=== PATIENT | female | born 1980 | race Caucasian/White ===

== ENCOUNTER 2016-10-17 06:11 | Observation (INO) | payer BC ==
--- NOTE | 2016-10-17 06:34 | C.PDOC ---
History Of Present Illness 36 year old female who presents to the ER after waking up this morning with chest tightness. 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 Deutsch. Patient is not currently on any medication; denies Hx or URI, cough, nausea, vomiting, or fever. Chief Complaint (Nursing): Chest Pain History Per: Patient History/Exam Limitations: no limitations Onset/Duration Of Symptoms: Hrs Current Symptoms Are (Timing): Still Present Quality: Tightness Associated Symptoms: denies: Nausea, Dyspnea, Diaphoresis, Syncope Modifying Factors: None Exacerbating Factors: None Alleviating Factors: None Recent travel outside of the [place]: No Past Medical History Reviewed: Historical Data, Nursing Documentation, Vital Signs Vital Signs: Last Vital Signs Temp 97.6 F 10/17/16 06:19 Pulse 62 10/17/16 06:19 Resp 17 10/17/16 06:19 BP 133/79 10/17/16 06:19 Pulse Ox 99 10/17/16 06:19 - Medical History PMH: No Chronic Diseases Surgical History: No Surg Hx Family History: States: Unknown Family Hx Review Of Systems Constitutional: Negative for: Fever, Chills Cardiovascular: Positive for: Chest Pain. Negative for: Palpitations Respiratory: Negative for: Cough, Shortness of Breath, Wheezing Gastrointestinal: Negative for: Nausea, Vomiting Neurological: Negative for: Weakness, Numbness Physical Exam - Physical Exam Appears: Non-toxic Skin: Normal Color, Warm, Dry Head: Atraumatic, Normacephalic Oral Mucosa: Moist Chest: No Tenderness Cardiovascular: Rhythm Regular, No Murmur Respiratory: Normal Breath Sounds, No Rales, No Rhonchi, No Wheezing Gastrointestinal/Abdominal: Soft, No Tenderness Neurological/Psych: Oriented x3, Normal Speech, Normal Cognition ED Course And Treatment ECG Rhythm: Sinus Bradycardia, ST/T Changes Interpretation Of ECG: sinus rad with sinus arrhythmia, T abnormalities, mostly in the lateral leads Rate From EC Progress Note: Labs, CXR ordered. Case was signed out to Trisha Reese at 7 am. Disposition - Disposition Referrals: Sachin Massey [Primary Care Provider] - Disposition Time: 07:00 Condition: FAIR Forms: [facility] [facility] (Spanish) - Clinical Impression Clinical Impression: Chest pain - Scribe Statement The provider has reviewed the documentation as recorded by the Scribe Stephen Marie All medical record entries made by the Scribe were at my direction and personally dictated by me. I have reviewed the chart and agree that the record accurately reflects my personal performance of the history, physical exam, medical decision making, and the department course for this patient. I have also personally directed, reviewed, and agree with the discharge instructions and disposition. Physician Patient Turnover Patient Signed Over To: Trisha Reese Handoff Comments: Pending labs and x-ray.
[2016-10-17 07:02] LABS: BASO # 0.1 K/uL (0.0-0.2); BASO % 0.8 % (0.0-2.0); EOS # 0.2 K/uL (0.0-0.7); EOS % 2.2 % (0.0-4.0); HEMATOCRIT 41.9 % (34.0-47.0); LYMPH % 45.8 % (20.0-40.0); MEAN CELL VOLUME 67.2 fL (81.0-99.0); MEAN CORPUSCULAR HEMOGLOBIN 20.7 pg (27.0-31.0); MEAN CORPUSCULAR HGB CONC 30.7 g/dL (33.0-37.0); MONO # 0.6 K/uL (0.0-0.8); MONO % 6.9 % (0.0-10.0); NRBC % 0.1 % (0.0-2.0); RED CELL DISTRIBUTION WIDTH 14.9 % (11.5-14.5); WHITE BLOOD COUNT 8.7 K/uL (4.8-10.8)
[2016-10-17 07:11] LABS: INR 1.1; PARTIAL THROMBOPLASTIN TIME 33 SECONDS (21-34)
[2016-10-17 07:17] LABS: RBC URINE 5 /hpf (0-3); URINE BACTERIA RARE (<OCC); URINE BILIRUBIN NEGATIVE (NEGATIVE); URINE BLOOD 1+ (NEGATIVE); URINE COLOR Yellow (YELLOW); URINE GLUCOSE (UA) NORMAL (Normal); URINE KETONE NEGATIVE (NEGATIVE); URINE LEUKOCYTE ESTERASE TRACE Leu/uL (Negative); URINE PROTEIN NEGATIVE (NEGATIVE); URINE UROBILINOGEN NORMAL mg/dL (0.2-1.0); WBC URINE 2 /hpf (0-5)
[2016-10-17 09:12] LABS: CHLORIDE 105 mmol/L (98-107); POTASSIUM 3.9 mmol/L (3.6-5.2); SODIUM 140 mmol/L (132-148)
[2016-10-17 09:14] LABS: AST/SGOT 13 U/L (14-36); BILIRUBIN,TOTAL 0.7 mg/dL (0.2-1.3); CARBON DIOXIDE 24 mmol/L (22-30); GFR AFRICAN-AMERICAN > 60
[2016-10-17 09:15] LABS: ALB/GLOB RATIO 1.1 (1.0-2.1); ALKALINE PHOSPHATASE 60 U/L (38-126); ALT/SGPT 32 U/L (9-52); BLOOD UREA NITROGEN 15 mg/dL (7-17); CALCIUM 8.9 mg/dl (8.6-10.4); GLUCOSE,RANDOM 85 mg/dL (65-105)
--- NOTE | 2016-10-17 10:33 | CP.PCM.HP ---
History of Present Illness - History of Present Illness History of Present Illness: cc: "chest pain" HPI: Patient is a 36 year old female with a PMHx of Tetralogy of Fallot (s/p hx at age of 1) that presented to the ED complaining of chest pain that started this morning, around 5-6am. She said she was getting ready to go to work, washing up in the bathroom, when she started feeling a pain in her left chest, describing it as a 7-8/10 pressure/ sharp pain. She said that it was the first time she ever had pain like this. She denied any nausea, vomiting, palpitations , dyspnea, numbness or tingling, radiation of pain. PMD: Dr. Massey PMHx: Hx of Tetralogy of Fallot PSHx: Heart surgery around age of 1, appendectomy in 1997 Allergies: NKDA Fam hx: Father- [place] in 70s, htn, dm, prostate cancer Social hx: denies smoking or drug hx. Social alcohol use. 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 She has no advance directives, she is full code. patient designates her sister Mckenzie as her health proxy- Phone number is [phone]. Present on Admission - Present on Admission Any Indicators Present on Admission: No Review of Systems - Constitutional Constitutional: absent: Anorexia, Daytime Sleepiness - EENT Eyes: absent: Blurred Vision Nose/Mouth/Throat: absent: Nasal Congestion, Facial Pain, Neck Mass - Cardiovascular Cardiovascular: Chest Pain. absent: Chest Pain at Rest, Chest Pain with Activity, Irregular Heart Rhythm, Leg Edema, Palpitations, Pedal Edema - Respiratory Respiratory: absent: Cough, Hemoptysis, Wheezing - Gastrointestinal Gastrointestinal: absent: Abdominal Pain, Change in Bowel Habits, Constipation, Dyspepsia, Nausea, Vomiting - Genitourinary Genitourinary: absent: Change in Urinary Stream, Difficulty Urinating - Menstruation Menstruation: absent: Amenorrhea/ Control, Post Menopausal, Premenarche - Musculoskeletal Musculoskeletal: absent: Back Pain, Myalgias, Numbness - Integumentary Integumentary: absent: Change in Hair, Swelling, Wounds - Neurological Neurological: absent: Abnormal Movements, Tingling, Tremor, Weakness - Psychiatric Psychiatric: absent: Anxiety, Panic Attacks, Suicidal Ideation - Endocrine Endocrine: absent: Fatigue, Palpitations Past Patient History - Infectious Disease Hx of Infectious Diseases: None - Past Social History Smoking Status: Never Smoked Chewing Tobacco Use: No Cigar Use: No Alcohol: Occasional Drugs: Denies - PSYCHIATRIC Hx Substance Use: No - SURGICAL HISTORY Hx Surgeries: Yes Hx Appendectomy: Yes (1997) Other/Comment: "open heart when i was 2yrs old" - ANESTHESIA Hx Anesthesia: Yes Hx Anesthesia Reactions: No Meds Allergies/Adverse Reactions: Allergies Allergy/AdvReac Type Severity Reaction Status Date / Time No Known Allergies Allergy Unverified 10/17/16 06:19 Physical Exam - Constitutional Appears: Non-toxic, No Acute Distress - Head Exam Head Exam: ATRAUMATIC, NORMAL INSPECTION, NORMOCEPHALIC - Eye Exam Pupil Exam: NORMAL ACCOMODATION, PERRL - ENT Exam ENT Exam: Mucous Membranes Moist - Neck Exam Neck exam: Positive for: Normal Inspection - Respiratory Exam Respiratory Exam: Clear to Auscultation Bilateral, NORMAL BREATHING PATTERN. absent: Prolonged Expiratory Phase, Rales, Rhonchi, Wheezes - Cardiovascular Exam Cardiovascular Exam: REGULAR RHYTHM, +S1, +S2 Additional comments: left chest, lateral to sternum has palpable tenderness. Pain worsens when patient is sitting up, relieved when patient lays down. - GI/Abdominal Exam GI & Abdominal Exam: Normal Bowel Sounds, Soft. absent: Distended, Firm, Guarding, Tenderness - Extremities Exam Extremities exam: Positive for: normal capillary refill, pedal pulses present - Neurological Exam Neurological exam: Alert, CN II-XII Intact, Oriented x3 - Psychiatric Exam Psychiatric exam: Normal Affect, Normal Mood - Skin Skin Exam: Dry, Intact, Normal Color, Warm Results - Vital Signs Recent Vital Signs: Last Vital Signs Temp 97.9 F 10/17/16 09:46 Pulse 58 L 10/17/16 09:46 Resp 18 10/17/16 09:46 BP 128/74 10/17/16 09:46 Pulse Ox 100 10/17/16 09:46 - Labs Result Diagrams: 10/17/16 06:46 10/17/16 09:01 Labs: Laboratory Results - last 24 hr 10/17/16 10/17/16 10/17/16 06:40 06:41 06:46 WBC 8.7 RBC 6.23 H Hgb 12.9 Hct 41.9 MCV 67.2 L MCH 20.7 L MCHC 30.7 L RDW 14.9 H Plt Count 214 MPV 9.0 Neut % (Auto) 44.3 L Lymph % (Auto) 45.8 H Lawrence % (Auto) 6.9 Eos % (Auto) 2.2 Baso % (Auto) 0.8 Neut # 3.9 Lymph # 4.0 Lawrence # 0.6 Eos # 0.2 Baso # 0.1 PT 12.8 H INR 1.1 APTT 33 D-Dimer, Quantitative < 200 Sodium Potassium Chloride Carbon Dioxide Anion Gap BUN Creatinine Est GFR ( Amer) Est GFR (Non-Af Amer) Random Glucose Calcium Total Bilirubin AST ALT Alkaline Phosphatase Total Creatine Kinase CK-MB (Mass) Troponin I, Quant NT-Pro-B Natriuret Pep Total Protein Albumin Globulin Albumin/Globulin Ratio Urine Color Yellow Urine Clarity Clear Urine pH 6.0 Ur Specific Mcdermitt 1.020 Urine Protein Negative Urine Glucose (UA) Normal Urine Ketones Negative Urine Blood 1+ H Urine Nitrate Negative Urine Bilirubin Negative Urine Urobilinogen Normal Ur Leukocyte Esterase Trace Urine WBC (Auto) 2 Urine RBC (Auto) 5 H Ur Squamous Epith Cells 2 Urine Bacteria Rare Urine HCG, Qual Negative 10/17/16 09:01 WBC RBC Hgb Hct MCV MCH MCHC RDW Plt Count MPV Neut % (Auto) Lymph % (Auto) Lawrence % (Auto) Eos % (Auto) Baso % (Auto) Neut # Lymph # Lawrence # Eos # Baso # PT INR APTT D-Dimer, Quantitative Sodium 140 Potassium 3.9 Chloride 105 Carbon Dioxide 24 Anion Gap 15 BUN 15 Creatinine 0.6 L Est GFR ( Amer) > 60 Est GFR (Non-Af Amer) > 60 Random Glucose 85 Calcium 8.9 Total Bilirubin 0.7 AST 13 L ALT 32 Alkaline Phosphatase 60 Total Creatine Kinase 43 CK-MB (Mass) 0.41 Troponin I, Quant < 0.0120 NT-Pro-B Natriuret Pep 353 Total Protein 7.0 Albumin 3.6 Globulin 3.4 Albumin/Globulin Ratio 1.1 Urine Color Urine Clarity Urine pH Ur Specific Mcdermitt Urine Protein Urine Glucose (UA) Urine Ketones Urine Blood Urine Nitrate Urine Bilirubin Urine Urobilinogen Ur Leukocyte Esterase Urine WBC (Auto) Urine RBC (Auto) Ur Squamous Epith Cells Urine Bacteria Urine HCG, Qual Assessment & Plan - Assessment and Plan (Free Text) Assessment: 1. Atypical Chest Pain Likely Musculoskeletal pain Consult Cardiology- Dr. La Nena KNOX negative x 1 EKG- HR- 52 bpm, Sinus bradycardia with marked sinus arrhythmia, RBBB, T wave abnormalities. Per ER documentation, RBBB was seen on previous EKG, as per Dr. Deutsch f/u ROMIs x 2 and EKGs x2 at 3pm and 9pm f/u 2d Echo f/u CXR official read 2. Abnormal RBC Indices MCV 67.2 MCH 20.7 MCHC 30.7 f/u Iron, Ferritin, TIBC, % saturation 3. Prophylactic Measures SCDs Protonix 40mg PO Daily Heart Healthy Diet
--- NOTE | 2016-10-17 12:54 | RAD ---
HISTORY: CP COMPARISON: None available. TECHNIQUE: Chest, one view. FINDINGS: Examination limited by habitus. LUNGS: No focal consolidation. Please note that chest x-ray has limited sensitivity for the detection of pulmonary masses. PLEURA: No significant pleural effusion identified. No definite pneumothorax . CARDIOVASCULAR: Cardiomegaly. OSSEOUS STRUCTURES: No acute osseous abnormality identified. VISUALIZED UPPER ABDOMEN: Unremarkable. OTHER FINDINGS: None. IMPRESSION: Cardiomegaly.
[2016-10-17] MEDS ORDERED: Pantoprazole 40 mg EC Tab PO ONE (12:59)
[2016-10-17] MEDS: Pantoprazole 40 mg EC Tab PO SCH (13:00)
--- NOTE | 2016-10-17 13:16 | CARD ---
APPROVED REPORT EXAM: Two-dimensional and M-mode echocardiogram with Doppler and color Doppler. Other Information Quality : LimitedRhythm : NSR Technically limited study due to body habitus and prior tetralogy repair INDICATION Chest Pain ENLARGED HEART ON CXR, HX OF TETRALOGY 2D DIMENSIONS IVSd1.2 (0.7-1.1cm)LVDd4.1 (3.9-5.9cm) PWd1.0 (0.7-1.1cm)LVDs2.8 (2.5-4.0cm) FS (%) 31.0 %LVEF (%)59.2 (>50%) M-Mode DIMENSIONS Left Atrium (MM)4.07 (2.5-4.0cm)Aortic Root3.36 (2.2-3.7cm) Aortic Cusp Exc.2.48 (1.5-2.0cm) Aortic Valve AoV Peak Bfabugrw230.5cm/sAoV VTI23.6cmAO Peak GR.5mmHg AO Mean GR.3mmHg Mitral Valve MV E Erommcgc39.2cm/sMV A Svhdxbzw40.1cm/sE/A ratio0.6 TDI E/Lateral E'0.0E/Medial E'0.0 Pulmonary Valve PV Peak Xyuinpeu154.2cm/sPV Peak Grad.7mmHg Tricuspid Valve TR Peak Asvacpxy989gs/sTR Peak Gr.00exGiQNLN39iaIm LEFT VENTRICLE The left ventricle is normal size. There is normal left ventricular wall thickness. Left ventricle systolic function is normal. The Ejection Fraction is 60-65%. Septal motion consistent with post-operative state. The left ventricular diastolic function is normal. There is no ventricular septal defect visualized. RIGHT VENTRICLE The right ventricle is normal size. The right ventricular systolic function is normal. ATRIA The left atrium is borderline dilated. The right atrium size is normal. AORTIC VALVE Not well visualized No aortic regurgitation is present. There is no aortic valvular stenosis. MITRAL VALVE The mitral valve is normal in structure. There is no evidence of mitral valve prolapse. There is no mitral valve regurgitation noted. TRICUSPID VALVE The tricuspid valve is not well visualized. There is trace tricuspid regurgitation. There is no pulmonary hypertension. PULMONIC VALVE The pulmonic valve is not well visualized. There is mild pulmonic valvular regurgitation. There is no pulmonic valvular stenosis. GREAT VESSELS The aortic root is normal in size. The IVC is dilated. PERICARDIAL EFFUSION There is no pericardial effusion. <Conclusion> Suboptimal with a poor acoustic window Left ventricle systolic function is normal. The Ejection Fraction is 60-65%. The left ventricular diastolic function is normal.
[2016-10-17 18:23] VITALS: RESP 20
--- NOTE | 2016-10-17 20:10 | CARD ---
APPROVED REPORT EKG Measurement Heart [id number] <Conclusion> Sinus bradycardia with marked sinus arrhythmia Right bundle branch block T wave abnormality, consider lateral ischemia Abnormal ECG
--- NOTE | 2016-10-17 23:32 | CP.PCM.CON ---
History of Present Illness - History of Present Illness History of Present Illness: 36 yo female woke up early this AM with a sharp left side chest david. Denies SOB , radiation of the pain, nausea, sweating, dizziness or weakness. Denies any traumatism, cough, fever, any recent heavy lifting. She underwent a surgical repair of a TOF at 1 yo, and has been doing well since then. She does not smoke cigarette and does not take any medication. Her father had an CA at the age of 70 yo. Serum TNI x 2 are WNL. A CXR reveals cardiomegaly, but no lung infiltrate. ECG: RSR with a complete RBBB, unchanged from previous ECG's. An Echocardiogram reveals a normal LV, an enlarged RV, no RVOT stenosis, no pericardial effusion, no intra-cardiac mass, no intra-cardiac shunt, a minimal TR with normal pulmonary pressure and normal SVC. Review of Systems - Cardiovascular Cardiovascular: Chest Pain at Rest Past Patient History - Infectious Disease Hx of Infectious Diseases: None - Past Medical History & Family History Past Medical History?: Yes - Past Social History Smoking Status: Never Smoked Alcohol: Occasional Drugs: Denies Home Situation {Lives}: With Family Domestic Violence: Negative - CARDIAC Hx Cardiac Disorders: Yes Other/Comment: tetralogy of fallot - PULMONARY Hx Respiratory Disorders: No - NEUROLOGICAL Hx Neurological Disorder: No - HEENT Hx HEENT Problems: No - RENAL Hx Chronic Kidney Disease: No - ENDOCRINE/METABOLIC Hx Endocrine Disorders: No - HEMATOLOGICAL/ONCOLOGICAL Hx Blood Disorders: No - INTEGUMENTARY Hx Dermatological Problems: No - MUSCULOSKELETAL/RHEUMATOLOGICAL Hx Musculoskeletal Disorders: No Hx Falls: No - GASTROINTESTINAL Hx Gastrointestinal Disorders: No - GENITOURINARY/GYNECOLOGICAL Hx Genitourinary Disorders: No - PSYCHIATRIC Hx Psychophysiologic Disorder: No Hx Substance Use: No - SURGICAL HISTORY Hx Surgeries: Yes Hx Appendectomy: Yes (1997) Hx Open Heart Surgery: Yes (age 1, repair of TOF.) Other/Comment: "oral surgery and wisdom teeth taken out in june last year" - ANESTHESIA Hx Anesthesia: Yes Hx Anesthesia Reactions: No Hx Malignant Hyperthermia: No Has any member of the family had a problem w/ anesthesia?: No Meds Allergies/Adverse Reactions: Allergies Allergy/AdvReac Type Severity Reaction Status Date / Time No Known Allergies Allergy Unverified 10/17/16 06:19 - Medications Medications: Current Medications Pantoprazole Sodium (Protonix Ec Tab) 40 mg PO DAILY FADUMO Last Admin: 10/17/16 13:00 Dose: 40 mg Pneumococcal Polyvalent Vaccine (Pneumovax 23 Vaccine) 0.5 ml IM .ONCE ONE Stop: 10/19/16 10:01 Physical Exam - Constitutional Appears: Well, No Acute Distress - Head Exam Head Exam: NORMAL INSPECTION - Eye Exam Eye Exam: Normal appearance - ENT Exam ENT Exam: Normal Exam - Neck Exam Neck exam: Positive for: Normal Inspection - Respiratory Exam Respiratory Exam: Clear to Auscultation Bilateral Additional comments: Tender left costo-chondral joints. - Cardiovascular Exam Cardiovascular Exam: Bradycardia - GI/Abdominal Exam GI & Abdominal Exam: Normal Bowel Sounds, Soft - Extremities Exam Extremities exam: Positive for: normal inspection - Back Exam Back exam: NORMAL INSPECTION - Neurological Exam Neurological exam: Alert, Normal Gait, Oriented x3 - Psychiatric Exam Psychiatric exam: Anxious - Skin Skin Exam: Dry, Intact, Normal Color, Warm Results - Vital Signs Recent Vital Signs: Last Vital Signs Temp 97.3 F L 10/17/16 18:22 Pulse 52 L 10/17/16 21:30 Resp 20 10/17/16 18:22 BP 101/67 10/17/16 18:22 Pulse Ox 97 10/17/16 18:22 - Labs Result Diagrams: 10/17/16 06:46 10/17/16 09:01 Labs: Laboratory Results - last 24 hr 10/17/16 10/17/16 16:42 21:29 Total Creatine Kinase 41 43 CK-MB (Mass) 0.32 0.22 Troponin I, Quant < 0.0120 < 0.0120 Assessment & Plan (1) Chest pain Assessment and Plan: From costochondritis. Try Ibuprofen to control the pain. Discharge home in AM. Status: Acute
[2016-10-18 07:54] LABS: BASO # 0.1 K/uL (0.0-0.2); BASO % 0.9 % (0.0-2.0); EOS # 0.2 K/uL (0.0-0.7); EOS % 2.8 % (0.0-4.0); HEMATOCRIT 42.5 % (34.0-47.0); LYMPH # 2.3 K/uL (1.0-4.3); LYMPH % 32.2 % (20.0-40.0); MEAN CELL VOLUME 67.2 fL (81.0-99.0); MEAN CORPUSCULAR HEMOGLOBIN 20.5 pg (27.0-31.0); MEAN CORPUSCULAR HGB CONC 30.6 g/dL (33.0-37.0); MEAN PLATELET VOLUME 9.3 fL (7.2-11.7); MONO # 0.6 K/uL (0.0-0.8); MONO % 7.8 % (0.0-10.0); RED CELL DISTRIBUTION WIDTH 14.8 % (11.5-14.5); WHITE BLOOD COUNT 7.1 K/uL (4.8-10.8)
[2016-10-18 08:06] LABS: CHLORIDE 104 mmol/L (98-107); POTASSIUM 3.6 mmol/L (3.6-5.2); SODIUM 142 mmol/L (132-148)
[2016-10-18 08:07] VITALS: BP 121/83; TEMP 97.8; O2SAT 98
[2016-10-18 08:08] LABS: AST/SGOT 15 U/L (14-36); BILIRUBIN,TOTAL 0.7 mg/dL (0.2-1.3); CARBON DIOXIDE 22 mmol/L (22-30); GFR AFRICAN-AMERICAN > 60
[2016-10-18 08:09] LABS: ALKALINE PHOSPHATASE 65 U/L (38-126); ALT/SGPT 24 U/L (9-52); BLOOD UREA NITROGEN 14 mg/dL (7-17); GLUCOSE,RANDOM 85 mg/dL (65-105); TOTAL PROTEIN 7.1 g/dL (6.3-8.3)
[2016-10-18 08:12] LABS: IRON 61 ug/dL (37-170)
--- NOTE | 2016-10-18 08:14 | CP.PCM.PN ---
Subjective - Date & Time of Evaluation Date of Evaluation: 10/18/16 Time of Evaluation: 07:45 - Subjective Subjective: Hospitalist Progress Note Patient was seen and examined at 7:45 AM 10/18/16 563B ROS: Currently patient is not experiencing any chest pain NO palpitations NO SOB/Cough/Wheezing NO Abdominal Pain NO n/v/d/c (had bowel movement this morning) NO other complaints upon FULL ROS Exam: HEENT: NCA, EOMI, PERRLA, NO cervical/supraclavicular/submandibular lymphadenopathy, NO pharyngeal erythema/exudate, Nasal Turbinates are nonerythematous/nonedematous, NO thyromegaly Cardio: NS1 and NS2, NO M/R/G Resp: CTA B/L, NO R/R/W GI: BSx4, Soft, NT, Central Obesity, Could not adequately palpate the liver and spleen, NO guarding/rebound tenderness Ext: Pulses are strong and equal, Capillary Refill is 2 seconds Neuro: CN II through XII are grossly intact Troponins are negative 2D Echo shows NO pericardial effusion, LVSF is normal, EF estimated at 60-65%, Diastolic Function is normal Lubricating Engineer Dr. Deutsch has evaluated the patient and cleared her for discharge The following instructions were explained to the patient and copy of these instructions should be provided to her upon discharge: 1). Please schedule follow up with your Primary Care Physician Dr. Massey to take place in the next 7 to 10 days 2). Please schedule your yearly follow up with Dr. Deutsch. 3). You were provide with the following prescriptions upon discharge: Ibuprofen 600 mg, 1 tablet by mouth every 8 hours PRN Severe Pain, Disp #30, NO refills Patient was under our care from 10/17/16 through 10/18/16. May return to work on . 4). If you need to take the Ibuprofen, please make sure that you eat something at least 15 minutes PRIOR to taking the medication. Afterwards please make sure that you are drinking plenty of water to flush out your kidneys. 5). Please be well and take care. Nii Poole D.O. Objective - Vital Signs/Intake and Output Vital Signs (last 24 hours): Temp Pulse Resp BP Pulse Ox 97.6 F 50 L 20 112/72 96 10/17/16 23:15 10/18/16 04:16 10/17/16 23:15 10/17/16 23:15 10/17/16 23:15 Intake and Output: 10/18/16 10/18/16 06:59 18:59 Intake Total 300 Balance 300 - Medications Medications: Current Medications Pantoprazole Sodium (Protonix Ec Tab) 40 mg PO DAILY FADUMO Last Admin: 10/17/16 13:00 Dose: 40 mg Pneumococcal Polyvalent Vaccine (Pneumovax 23 Vaccine) 0.5 ml IM .ONCE ONE Stop: 10/19/16 10:01 - Labs Labs: 10/18/16 07:42 PT 12.8 SECONDS (9.7-12.2) H 10/17/16 06:40 INR 1.1 10/17/16 06:40 APTT 33 SECONDS (21-34) 10/17/16 06:40
[2016-10-18 08:37] LABS: THYROID STIMULATING HORMONE 1.42 mIU/L (0.46-4.68)
[2016-10-18] MEDS: Pantoprazole 40 mg EC Tab PO SCH (09:26)
--- NOTE | 2016-10-18 09:44 | CP.PCM.DIS ---
<Anastacio Case - Last Filed: 10/18/16 11:41> Provider - Provider Date of Admission: 10/17/16 10:03 Attending physician: Nii Poole MD Primary care physician: Sachin Massey MD Time Spent in preparation of Discharge (in minutes): 31 Diagnosis - Discharge Diagnosis (1) Atypical chest pain Status: Acute (2) Abnormal RBC indices Status: Acute (3) Prophylactic measure Status: Acute Hospital Course - Lab Results Lab Results: Most Recent Lab Values WBC 7.1 K/uL (4.8-10.8) 10/18/16 07:42 RBC 6.33 Mil/uL (3.80-5.20) H 10/18/16 07:42 Hgb 13.0 g/dL (11.0-16.0) 10/18/16 07:42 Hct 42.5 % (34.0-47.0) 10/18/16 07:42 MCV 67.2 fL (81.0-99.0) L 10/18/16 07:42 MCH 20.5 pg (27.0-31.0) L 10/18/16 07:42 MCHC 30.6 g/dL (33.0-37.0) L 10/18/16 07:42 RDW 14.8 % (11.5-14.5) H 10/18/16 07:42 Plt Count 240 K/uL (130-400) 10/18/16 07:42 MPV 9.3 fL (7.2-11.7) 10/18/16 07:42 Neut % (Auto) 56.3 % (50.0-75.0) 10/18/16 07:42 Lymph % (Auto) 32.2 % (20.0-40.0) 10/18/16 07:42 [place] % (Auto) 7.8 % (0.0-10.0) 10/18/16 07:42 Eos % (Auto) 2.8 % (0.0-4.0) 10/18/16 07:42 Baso % (Auto) 0.9 % (0.0-2.0) 10/18/16 07:42 Neut # 4.0 K/uL (1.8-7.0) 10/18/16 07:42 Lymph # 2.3 K/uL (1.0-4.3) 10/18/16 07:42 [place] # 0.6 K/uL (0.0-0.8) 10/18/16 07:42 Eos # 0.2 K/uL (0.0-0.7) 10/18/16 07:42 Baso # 0.1 K/uL (0.0-0.2) 10/18/16 07:42 PT 12.8 SECONDS (9.7-12.2) H 10/17/16 06:40 INR 1.1 10/17/16 06:40 APTT 33 SECONDS (21-34) 10/17/16 06:40 D-Dimer, Quantitative < 200 ng/mlDDU (0-243) 10/17/16 06:40 Sodium 142 mmol/L (132-148) 10/18/16 07:42 Potassium 3.6 mmol/L (3.6-5.2) 10/18/16 07:42 Chloride 104 mmol/L (98-107) 10/18/16 07:42 Carbon Dioxide 22 mmol/L (22-30) 10/18/16 07:42 Anion Gap 19 (10-20) 10/18/16 07:42 BUN 14 mg/dL (7-17) 10/18/16 07:42 Creatinine 0.6 MG/DL (0.7-1.2) L 10/18/16 07:42 Est GFR ( Amer) > 60 10/18/16 07:42 Est GFR (Non-Af Amer) > 60 10/18/16 07:42 Random Glucose 85 mg/dL (65-105) 10/18/16 07:42 Hemoglobin A1c 6.1 % (4.2-6.5) 10/18/16 07:42 Calcium 9.0 mg/dl (8.6-10.4) 10/18/16 07:42 Iron 61 ug/dL (37-170) 10/18/16 07:42 TIBC 301 ug/dL (250-450) 10/18/16 07:42 % Saturation 20 (20-55) 10/18/16 07:42 Ferritin 239.0 ng/mL 10/18/16 07:42 Total Bilirubin 0.7 mg/dL (0.2-1.3) 10/18/16 07:42 AST 15 U/L (14-36) 10/18/16 07:42 ALT 24 U/L (9-52) 10/18/16 07:42 Alkaline Phosphatase 65 U/L (38-126) 10/18/16 07:42 Total Creatine Kinase 43 U/L (30-135) 10/17/16 21:29 CK-MB (Mass) 0.22 ng/mL (0.0-3.38) 10/17/16 21:29 Troponin I, Quant < 0.0120 ng/mL (0.00-0.120) 10/17/16 21:29 NT-Pro-B Natriuret Pep 353 pg/mL (0-450) 10/17/16 09:01 Total Protein 7.1 g/dL (6.3-8.3) 10/18/16 07:42 Albumin 3.5 g/dL (3.5-5.0) 10/18/16 07:42 Globulin 3.6 gm/dL (2.2-3.9) 10/18/16 07:42 Albumin/Globulin Ratio 1.0 (1.0-2.1) 10/18/16 07:42 Free T4 1.44 ng/dL (0.78-2.19) 10/18/16 07:42 TSH 3rd Generation 1.42 mIU/L (0.46-4.68) 10/18/16 07:42 Urine Color Yellow (YELLOW) 10/17/16 06:41 Urine Clarity Clear (Clear) 10/17/16 06:41 Urine pH 6.0 (5.0-8.0) 10/17/16 06:41 Ur Specific [place] 1.020 (1.003-1.030) 10/17/16 06:41 Urine Protein Negative mg/dL (NEGATIVE) 10/17/16 06:41 Urine Glucose (UA) Normal mg/dL (Normal) 10/17/16 06:41 Urine Ketones Negative mg/dL (NEGATIVE) 10/17/16 06:41 Urine Blood 1+ (NEGATIVE) H 10/17/16 06:41 Urine Nitrate Negative (NEGATIVE) 10/17/16 06:41 Urine Bilirubin Negative (NEGATIVE) 10/17/16 06:41 Urine Urobilinogen Normal mg/dL (0.2-1.0) 10/17/16 06:41 Ur Leukocyte Esterase Trace Sherita/uL (Negative) 10/17/16 06:41 Urine WBC (Auto) 2 /hpf (0-5) 10/17/16 06:41 Urine RBC (Auto) 5 /hpf (0-3) H 10/17/16 06:41 Ur Squamous Epith Cells 2 /hpf (0-5) 10/17/16 06:41 Urine Bacteria Rare (<OCC) 10/17/16 06:41 Urine HCG, Qual Negative (NEGATIVE) 10/17/16 06:41 - Hospital Course Hospital Course: On admission: "Patient is a 36 year old female with a PMHx of Tetralogy of Fallot (s/p hx at age of 1) that presented to the ED complaining of chest pain that started this morning, around 5-6am. She said she was getting ready to go to work, washing up in the bathroom, when she started feeling a pain in her left chest, describing it as a 7-8/10 pressure/ sharp pain. She said that it was the first time she ever had pain like this. She denied any nausea, vomiting, palpitations, dyspnea , numbness or tingling, radiation of pain. " Hospital Course: Patient admitted for atypical chest pain. Consulted patient's personal operations planner, Dr. Deutsch, who evaluated the patient at bedside. Cardiac enzymes were negative. EKG showed sinus bradycardia at 52 bpm with marked sinus arrhythmia, RBBB, and T wave abnormalities. RBBB was seen on previous EKG as per Dr. Deutsch. 2D echo and CXR showed no abnormalities. Dr. Deutsch believes that this is likely musculoskeletal pain and cleared her for discharge in the morning from his perspective. MCV, MCH, and MCHC were found to be 67.2, 20.7, and 30.7, respectively. Iron, Ferritin, TIBC, and %saturation were evaluated. No abnormalities were found. You have been diagnosed with costochondritis which means inflammation around the muscles of the rib cage. Please take Ibuprofen 600 mg by mouth once every 8 hours ONLY if needed. Please take it with food because it can cause an upset stomach or acid reflux as a side effect. Please see your primary care physician, Dr. Massey, within 7-10 days of discharge. Please also see your operations planner, Dr. Deutsch, for your regular follow up appointments Take care, and if there are any emergencies, please return to the emergency room. - Date & Time of H&P Date of H&P: 10/18/16 Time of H&P: 09:00 Discharge Exam - Head Exam Head Exam: ATRAUMATIC, NORMAL INSPECTION - Eye Exam Eye Exam: EOMI, PERRL - ENT Exam ENT Exam: Mucous Membranes Moist - Respiratory Exam Respiratory Exam: Clear to PA & Lateral. absent: Rales, Rhonchi, Wheezes - Cardiovascular Exam Cardiovascular Exam: REGULAR RHYTHM, +S1, +S2 - GI/Abdominal Exam GI & Abdominal Exam: Normal Bowel Sounds, Soft. absent: Tenderness - Neurological Exam Neurological exam: Alert, CN II-XII Intact, Oriented x3 - Psychiatric Exam Psychiatric exam: Normal Affect, Normal Mood - Skin Skin Exam: Dry, Intact, Normal Color, Warm Discharge Plan - Discharge Medications Prescriptions: Ibuprofen [Motrin Tab] 600 mg PO Q8H #30 tab - Follow Up Plan Condition: STABLE Disposition: HOME/ ROUTINE Instructions: Ibuprofen (By mouth), Costochondritis (DC) Additional Instructions: You have been diagnosed with costochondritis which means inflammation around the muscles of the ribcage. Please take Ibuprofen 600 mg by mouth once every 8 hours ONLY if needed. Please take it with food because it can cause an upset stomach or acid reflux as a side effect. Please see your primary care physician Dr. Massey within 7-10 days of discharge. Please also see your operations planner Dr. Deutsch for your regular follow up appointments. Take care, and if there are any emergencies, please return to the emergency room. Referrals: Sachin Massey [Primary Care Provider] - 1 Week Davion Deutsch MD [Staff Provider] - <Nii Poole - Last Filed: 10/18/16 19:15> Provider - Provider Date of Admission: 10/17/16 10:03 Attending physician: Nii Poole MD Primary care physician: Sachin Massey MD Hospital Course - Lab Results Lab Results: Most Recent Lab Values WBC 7.1 K/uL (4.8-10.8) 10/18/16 07:42 RBC 6.33 Mil/uL (3.80-5.20) H 10/18/16 07:42 Hgb 13.0 g/dL (11.0-16.0) 10/18/16 07:42 Hct 42.5 % (34.0-47.0) 10/18/16 07:42 MCV 67.2 fL (81.0-99.0) L 10/18/16 07:42 MCH 20.5 pg (27.0-31.0) L 10/18/16 07:42 MCHC 30.6 g/dL (33.0-37.0) L 10/18/16 07:42 RDW 14.8 % (11.5-14.5) H 10/18/16 07:42 Plt Count 240 K/uL (130-400) 10/18/16 07:42 MPV 9.3 fL (7.2-11.7) 10/18/16 07:42 Neut % (Auto) 56.3 % (50.0-75.0) 10/18/16 07:42 Lymph % (Auto) 32.2 % (20.0-40.0) 10/18/16 07:42 [place] % (Auto) 7.8 % (0.0-10.0) 10/18/16 07:42 Eos % (Auto) 2.8 % (0.0-4.0) 10/18/16 07:42 Baso % (Auto) 0.9 % (0.0-2.0) 10/18/16 07:42 Neut # 4.0 K/uL (1.8-7.0) 10/18/16 07:42 Lymph # 2.3 K/uL (1.0-4.3) 10/18/16 07:42 [place] # 0.6 K/uL (0.0-0.8) 10/18/16 07:42 Eos # 0.2 K/uL (0.0-0.7) 10/18/16 07:42 Baso # 0.1 K/uL (0.0-0.2) 10/18/16 07:42 PT 12.8 SECONDS (9.7-12.2) H 10/17/16 06:40 INR 1.1 10/17/16 06:40 APTT 33 SECONDS (21-34) 10/17/16 06:40 D-Dimer, Quantitative < 200 ng/mlDDU (0-243) 10/17/16 06:40 Sodium 142 mmol/L (132-148) 10/18/16 07:42 Potassium 3.6 mmol/L (3.6-5.2) 10/18/16 07:42 Chloride 104 mmol/L (98-107) 10/18/16 07:42 Carbon Dioxide 22 mmol/L (22-30) 10/18/16 07:42 Anion Gap 19 (10-20) 10/18/16 07:42 BUN 14 mg/dL (7-17) 10/18/16 07:42 Creatinine 0.6 MG/DL (0.7-1.2) L 10/18/16 07:42 Est GFR ( Amer) > 60 10/18/16 07:42 Est GFR (Non-Af Amer) > 60 10/18/16 07:42 Random Glucose 85 mg/dL (65-105) 10/18/16 07:42 Hemoglobin A1c 6.1 % (4.2-6.5) 10/18/16 07:42 Calcium 9.0 mg/dl (8.6-10.4) 10/18/16 07:42 Iron 61 ug/dL (37-170) 10/18/16 07:42 TIBC 301 ug/dL (250-450) 10/18/16 07:42 % Saturation 20 (20-55) 10/18/16 07:42 Ferritin 239.0 ng/mL 10/18/16 07:42 Total Bilirubin 0.7 mg/dL (0.2-1.3) 10/18/16 07:42 AST 15 U/L (14-36) 10/18/16 07:42 ALT 24 U/L (9-52) 10/18/16 07:42 Alkaline Phosphatase 65 U/L (38-126) 10/18/16 07:42 Total Creatine Kinase 43 U/L (30-135) 10/17/16 21:29 CK-MB (Mass) 0.22 ng/mL (0.0-3.38) 10/17/16 21:29 Troponin I, Quant < 0.0120 ng/mL (0.00-0.120) 10/17/16 21:29 NT-Pro-B Natriuret Pep 353 pg/mL (0-450) 10/17/16 09:01 Total Protein 7.1 g/dL (6.3-8.3) 10/18/16 07:42 Albumin 3.5 g/dL (3.5-5.0) 10/18/16 07:42 Globulin 3.6 gm/dL (2.2-3.9) 10/18/16 07:42 Albumin/Globulin Ratio 1.0 (1.0-2.1) 10/18/16 07:42 Free T4 1.44 ng/dL (0.78-2.19) 10/18/16 07:42 TSH 3rd Generation 1.42 mIU/L (0.46-4.68) 10/18/16 07:42 Urine Color Yellow (YELLOW) 10/17/16 06:41 Urine Clarity Clear (Clear) 10/17/16 06:41 Urine pH 6.0 (5.0-8.0) 10/17/16 06:41 Ur Specific [place] 1.020 (1.003-1.030) 10/17/16 06:41 Urine Protein Negative mg/dL (NEGATIVE) 10/17/16 06:41 Urine Glucose (UA) Normal mg/dL (Normal) 10/17/16 06:41 Urine Ketones Negative mg/dL (NEGATIVE) 10/17/16 06:41 Urine Blood 1+ (NEGATIVE) H 10/17/16 06:41 Urine Nitrate Negative (NEGATIVE) 10/17/16 06:41 Urine Bilirubin Negative (NEGATIVE) 10/17/16 06:41 Urine Urobilinogen Normal mg/dL (0.2-1.0) 10/17/16 06:41 Ur Leukocyte Esterase Trace Sherita/uL (Negative) 10/17/16 06:41 Urine WBC (Auto) 2 /hpf (0-5) 10/17/16 06:41 Urine RBC (Auto) 5 /hpf (0-3) H 10/17/16 06:41 Ur Squamous Epith Cells 2 /hpf (0-5) 10/17/16 06:41 Urine Bacteria Rare (<OCC) 10/17/16 06:41 Urine HCG, Qual Negative (NEGATIVE) 10/17/16 06:41 Attending/Attestation - Attestation I have personally seen and examined this patient.: Yes I have fully participated in the care of the patient.: Yes I have reviewed all pertinent clinical information, including history, physical exam and plan: Yes Notes (Text): 10/18/16 19:15 Please also see my progress note 10/18/16 Nii Poole D.O.
[2016-10-18 16:16] VITALS: PULSE 50
[2016-10-19] MEDS ORDERED: Pneumococcal 23-Valent Vaccine IM ONE (10:00)
--- NOTE | 2016-11-02 18:45 | CARD ---
APPROVED REPORT EKG Measurement Heart [id number] <Conclusion> Sinus bradycardia Right bundle branch block T wave abnormality, consider lateral ischemia Abnormal ECG
--- NOTE | 2016-11-02 18:45 | CARD ---
APPROVED REPORT EKG Measurement Heart [id number] <Conclusion> Sinus bradycardia Right bundle branch block T wave abnormality, consider lateral ischemia Abnormal ECG
== END 2016-10-18 14:25 | disposition home or self-care (01) ==
LOC: C.ER 06:11 → SUPCPDRO 06:11 → C.9E 10:03 → C.5T 16:33
PROVIDERS: ADMIT Family Medicine; ATTEND Family Medicine
DX: R07.89 Other chest pain (principal); I45.10 Unspecified right bundle-branch block; I51.7 Cardiomegaly
CPT/HCPCS: 36415; 71010; 80053; 81001; 82728; 83036; 83540; 83550; 83880; 84439; 84443; 84484; 84703; 85025; 85378; 85610; 85730; 93005; 93306; 99284; G0378

== ENCOUNTER 2017-09-19 20:03 | Emergency (ER) | payer OTHER, BC ==
[2017-09-19 20:19] VITALS: BP 133/85; PULSE 56; RESP 20; TEMP 98.7; O2SAT 99
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
--- NOTE | 2017-09-20 08:22 | RAD ---
HISTORY: COMPARISON: 10/17/2016. TECHNIQUE: Chest PA and lateral FINDINGS: LINES AND TUBES: None. LUNG AND PLEURA: The lungs are well inflated and clear. No focal consolidation. No pleural effusion or pneumothorax. HEART AND MEDIASTINUM: There is moderate cardiomegaly. The hilar and mediastinal contours are within normal limits. SKELETAL STRUCTURES: The bony structures are within normal limits for the patient's age. VISUALIZED UPPER ABDOMEN: Normal. OTHER FINDINGS: None. IMPRESSION: No acute findings.
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
== END 2017-09-19 22:22 | disposition home or self-care (01) ==
LOC: C.ER 20:03
DX: S40.012A Contusion of left shoulder, initial encounter (principal); V49.49XA Driver injured in collision with other motor vehicles in traffic accident, initial encounter; W22.11XA Striking against or struck by driver side automobile airbag, initial encounter; Y92.410 Unspecified street and highway as the place of occurrence of the external cause